=== PATIENT | female | born 2000 | race Caucasian/White ===

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

== ENCOUNTER 2019-06-14 10:01 | Emergency (ER) | payer MEDICAID, OTHER ==
[~2019-06-14] VITALS: Ht 167.6 cm; Wt 46.7 kg
[~2019-06-14 10:01] MED LIST: ACET500C5 PO; CEPH-443 PO; IBUP-1561 PO; ONDA4TAB8 PO
[2019-06-14 10:04] VITALS: BP 127/80; PULSE 119; RESP 18; Ht 167.6 cm; Wt 46.7 kg
--- NOTE | 2019-06-14 16:00 | ERD ---
ER Documentation Chief Complaint Chief Complaint bilateral pelvic pain x1wk, denies painful urination HPI 18-year-old female presented to ED for bilateral pelvic pain x1 week. Patient states this never happened to her before. Patient states that she does not think she is and that she has an IUD. Patient denies any painful urination any back pain or any concerns for STIs. Patient denies any vaginal discharge. Patient states her only past medical history is ovarian cysts. Patient denies any allergies to medication and states the pain is an 8 out of 10 and comes and goes. ROS All systems reviewed and are negative except as per history of present illness. Medications Home Meds Active Scripts Acetaminophen* (Tylophen*) 500 Mg Capsule, 1 CAP PO Q6H PRN for PAIN AND OR ELEVATED TEMP, #20 CAP Prov:COSTA EDDY PA-C 06/14/19 Cephalexin* (Keflex*) 500 Mg Capsule, 500 MG PO BID for 5 Days, CAP Prov:COSTA EDDY PA-C 06/14/19 Ibuprofen* (Motrin*) 400 Mg Tab, 400 MG PO Q6, #30 TAB Prov:ALBERTA ALBA PA-C 05/21/18 Cephalexin* (Keflex*) 500 Mg Capsule, 500 MG PO QID for 10 Days, CAP Prov:ALBERTA ALBA PA-C 05/21/18 Ondansetron Hcl* (Zofran*) 4 Mg Tablet, 4 MG PO Q6H for NAUSEA AND/OR VOMITING, #6 TAB Prov:STEPHANIE RIOJAS NP 09/22/16 Ibuprofen* (Motrin*) 400 Mg Tab, 400 MG PO Q8, #30 TAB Prov:STEPHANIE RIOJAS NP 09/22/16 Allergies Allergies: Coded Allergies: No Known Allergy (Unverified , 04/03/15) PMhx/Soc Medical and Surgical Hx: pt denies Medical Hx, pt denies Surgical Hx Hx Alcohol Use: No Hx Substance Use: No Hx Tobacco Use: No Smoking Status: Never smoker FmHx Family History: No diabetes, No coronary disease, No other Physical Exam Vitals Vital Signs Date Temp Pulse Resp B/P (MAP) Pulse Ox O2 O2 Flow FiO2 Time Delivery Rate 06/14/19 97.9 119 18 127/80 99 10:04 (96) Physical Exam GENERAL: The patient is well-appearing, well-nourished, in no acute distress HEENT: Atraumatic. Conjunctivae are pink. Pupils equal, round, and reactive to light. There is no scleral icterus. Tympanic membranes clear bilaterally. Oropharynx clear. No nystagmus or photophobia. NECK: C-spine is soft and supple. There is no meningismus. There is no cervical lymphadenopathy. CHEST: Clear to auscultation bilaterally. There are no rales, wheezes or rhonchi. HEART: Regular rate and rhythm. No murmurs, clicks, rubs or gallops. ABDOMEN:Soft, nontender and nondistended. Good bowel sounds. No rebound or guarding. No gross peritonitis. No gross organomegaly or masses. No Mason sign or McBurney point tenderness. BACK: No midline or flank tenderness. Results 24 hrs Laboratory Tests Test 06/14/19 10:25 06/14/19 10:34 Urine Color YELLOW Urine Clarity SLIGHTLY CLOUDY Urine pH 8.0 Urine Specific [place] 1.017 Urine Ketones NEGATIVE mg/dL Urine Nitrite NEGATIVE mg/dL Urine Bilirubin NEGATIVE mg/dL Urine Urobilinogen NEGATIVE mg/dL Urine Leukocyte Esterase TRACE Andrew/ul Urine Microscopic RBC 23 /HPF Urine Microscopic WBC 61 /HPF Urine Squamous Epithelial Cells FEW /HPF Urine Bacteria FEW /HPF Urine Mucus MANY /HPF Urine Hemoglobin 3+ mg/dL Urine Glucose NEGATIVE mg/dL Urine Total Protein NEGATIVE mg/dl POC Beta HCG, Qualitative NEGATIVE Procedures/MDM ED course: The patient was stable throughout the ED course. The patient and/or family informed of laboratory and diagnostic imaging results throughout the ED course. . Diagnostic imaging: Read by radiologist PROCEDURE: US Pelvis CLINICAL INDICATION: Pelvic pain. TECHNIQUE: Transabdominal sonographic evaluation of the pelvis was performed. COMPARISON: 05/21/2018. FINDINGS: Uterus is anteverted and measures 6.6 x 3.5 x 4.5 cm. Endometrium measures 8 mm in thickness, within normal limits. An intrauterine contraceptive device is identified in the endometrial canal. No uterine masses are seen. Right ovary measures 3.1 x 1.6 x 2.1 cm. Left ovary measures 5.3 x 4.3 x 4.7 cm. There is a cystic lesion in the left ovary measuring up to 4 cm with low level internal echoes and internal septations which could represent a hemorrhagic cyst. No suspicious adnexal masses are seen. Arterial flow is detected in both ovaries. There is trace free pelvic fluid. IMPRESSION: 1. A 4 cm cystic lesion in the left ovary with internal septations and low level internal echoes. This may represent a hemorrhagic cyst. Recommend a follow-up pelvic sonogram in 6-12 weeks. This places the patient at increased risk for torsion. 2. Normal sonographic examination of the uterus and right ovary. Medications given in ER: Patient was offered acetaminophen for pain but refused Patient tolerated medication well with no adverse reactions. Patient reported improvement in pain. Medical decision makin-year-old female presented to ED for bilateral pelvic pain. Patient's physical exam was unremarkable her abdomen was soft nontender she is remained afebrile. Ultrasound showed ovarian cyst with no torsion. UA indicated the patient had a UTI. Patient's urine was negative. At this time I have low suspicion for acute appendicitis, PID, STI, ovarian torsion, ectopic , . Vision will be treated outpatient with Keflex and acetaminophen. Advised the patient if symptoms worsen return to ER immediately otherwise follow-up with primary care provider. Patient is agreement treatment plan and all questions were answered upon discharge Prescription for home: Acetaminophen Keflex I have discussed with the patient proper use and common side effects to expert with the medication . I advised the patient/family to speak with the pharmacist dispensing the medication to be advised of any potential drug interactions with other medication or supplements they may be taking. Discharge: At this time, patient is stable for discharge and outpatient management. I have instructed the patient to follow-up with his\her primary care physician in 1 to 2 days. I have discussed with the patient the possibility of needing to see a specialist for further work-up and imaging studies if symptoms persist. I have instructed the patient to promptly return to the ER for any new or worsening symptoms including increased pain, fever, nausea, vomiting, weakness or LOC. The patient and\or family expressed understanding of and agreement with this plan. All questions were answered. Home care instructions were provided. Disclaimer: Inadvertent spelling and grammatical errors are likely due to EHR\dictation software use and do not reflect on the overall quality of patient care. Also, please note that the electronic time recorded on the note does not necessarily reflect the actual time of the patient encounter. Departure Diagnosis: Primary Impression: Acute pain in female pelvis Additional Impressions: Ovarian cyst Laterality: left Qualified Codes: N83.202 - Unspecified ovarian cyst, left side UTI (urinary tract infection) Urinary tract infection type: acute cystitis Hematuria presence: with hematuria Qualified Codes: N30.01 - Acute cystitis with hematuria Condition: Stable Patient Instructions: Understanding Urinary Tract Infections (UTIs) Referrals: COMM[facility]ITY CL[facility] YOU HAVE RECEIVED A MEDICAL SCREENING EXAM AND THE RESULTS INDICATE THAT YOU DO NOT HAVE A CONDITION THAT REQUIRES URGENT TREATMENT IN THE EMERGENCY DEPARTMENT. FURTHER EVALUATION AND TREATMENT OF YOUR CONDITION CAN WAIT UNTIL YOU ARE SEEN IN YOUR DOCTORS OFFICE WITHIN THE NEXT 1-2 DAYS. IT IS YOUR RESPONSIBILITY TO MAKE AN APPOINTMENT FOR FOLOW-UP CARE. IF YOU HAVE A PRIMARY DOCTOR --you should call your primary doctor and schedule an appointment IF YOU DO NOT HAVE A PRIMARY DOCTOR YOU CAN CALL OUR PHYSICIAN REFERRAL HOTLINE AT IF YOU CAN NOT AFFORD TO SEE A PHYSICIAN YOU CAN CHOSE FROM THE FOLLOWING [facility] [address] [facility] [address] [facility] [email or web address] [address] [facility] [address] [facility] [address] [facility]. [facility]. [address] [facility] YOU HAVE RECEIVED A MEDICAL SCREENING EXAM AND THE RESULTS INDICATE THAT YOU DO NOT HAVE A CONDITION THAT REQUIRES URGENT TREATMENT IN THE EMERGENCY DEPARTMENT. FURTHER EVALUATION AND TREATMENT OF YOUR CONDITION CAN WAIT UNTIL YOU ARE SEEN IN YOUR DOCTORS OFFICE WITHIN THE NEXT 1-2 DAYS. IT IS YOUR RESPONSIBILITY TO MAKE AN APPOINTMENT FOR FOLOW-UP CARE. IF YOU HAVE A PRIMARY DOCTOR --you should call your primary doctor and schedule and appointment IF YOU DO NOT HAVE A PRIMARY DOCTOR YOU CAN CALL OUR PHYSICIAN REFERRAL HOTLINE AT . IF YOU CAN NOT AFFORD TO SEE A PHYSICIAN YOU CAN CHOSE FROM THE FOLLOWING [facility] INSTITUTIONS: [facility] [address] [place] [address] [facility] [address] [place] [address] [facility] [address] [place] [address] Additional Instructions: Call your primary care doctor TOMORROW for an appointment during the next 1-2 days.See the doctor sooner or return here if your condition worsens before your appointment time. COSTA EDDY PA-C Jun 14, 2019 16:00
== END 2019-06-14 12:10 | disposition home or self-care (01) ==
LOC: FTE 10:01
DX: N83.202 Unspecified ovarian cyst, left side (principal); N30.01 Acute cystitis with hematuria
CPT/HCPCS: 76856; 81001; 81025; Z7502